=== PATIENT | female | born 1985 | race Caucasian/White ===

== ENCOUNTER → 2016-11-17 | Outpatient (CLI) | payer OTHER ==
[~2016-11-17] MED LIST: FLNIN/ NAE; MXL10 PO; ZLF/50 PO
[2016-11-17 16:38] LABS: HEMATOCRIT 40.4 % (37-47); MEAN CELL VOLUME 83.1 fL (80-100); MEAN CORPUSCULAR HGB CONC 33.7 g/dl (32-36); MEAN PLATELET VOLUME 11.4 fL (7.4-10.4); PLATELET COUNT 282 K/uL (130-400); RED BLOOD COUNT 4.86 M/uL (4.2-5.4); WHITE BLOOD COUNT 9.71 K/uL (4.8-10.8)
[2016-11-17 16:59] LABS: BASO % 0.3 %; BASO ABS # 0.03 K/uL (0-0.2); COMPLETE YES; EOS % 0.8 %; IG% 0.3 %; LYMPH % 40.4 %; LYMPH ABS # 3.92 K/uL (1.2-3.4); MONO % 6.7 %; NEUT % 51.5 %
[2016-11-17 17:19] LABS: ALKALINE PHOSPHATASE 98 U/L (45-117); ALT/SGPT 22 U/L (12-78); AST/SGOT 16 U/L (15-37); BLOOD UREA NITROGEN 20 mg/dl (7-18); BUN/CREATININE RATIO 21.8 (10-20); CALCIUM 9.1 mg/dl (8.5-10.1); CARBON DIOXIDE 19 mmol/L (21-32); CHLORIDE 111 mmol/L (98-107); CREATININE 0.94 mg/dl (0.60-1.20); GLUCOSE 84 mg/dl (70-99); POTASSIUM 3.3 mmol/L (3.5-5.1); SODIUM 141 mmol/L (136-145)
[2016-11-17 18:13] LABS: LYME DISEASE AB IGG NEG (NEG); LYME DISEASE AB IGM NEG (NEG)
== END | disposition home or self-care (01) ==
LOC: C.LAB1850 15:07
PROVIDERS: ATTEND Physician Assistant
DX: G43.909 Migraine, unspecified, not intractable, without status migrainosus (principal)

== ENCOUNTER 2016-12-17 11:09 | Emergency (ER) | payer OTHER ==
[~2016-12-17] VITALS: Ht 172.7 cm; Wt 106.0 kg
[~2016-12-17 11:09] MED LIST changes: -MXL10 PO; +RIZA10TA21 PO
[2016-12-17 11:12] VITALS: TEMP 36.6; Ht 172.7 cm; Wt 106.0 kg
[2016-12-17] MEDS ORDERED: SODIUM CHLORIDE 0.9% 500ML 500 ML IV STA (11:39)
[2016-12-17] MEDS ORDERED: MoRPHine SULFATE 4 MG/ML 1 ML CARP\\VIAL IV STA (11:39)
[2016-12-17] MEDS ORDERED: ONDANSETRON INJ 2 MG/ML 2 ML VIAL IV STA (11:39)
[2016-12-17] MEDS ORDERED: KETOROLAC TROMETHAMINE 30 MG/ML VIAL IV STA (11:39)
[2016-12-17 11:50] LABS: BASO % 0.3 %; BASO ABS # 0.03 K/uL (0-0.2); COMPLETE YES; EOS % 1.3 %; HEMATOCRIT 38.8 % (37-47); IG% 0.2 %; LYMPH % 20.7 %; LYMPH ABS # 2.03 K/uL (1.2-3.4); MEAN CELL VOLUME 84.5 fL (80-100); MEAN CORPUSCULAR HGB CONC 34.3 g/dl (32-36); MEAN PLATELET VOLUME 10.4 fL (7.4-10.4); MONO % 9.9 %; NEUT % 67.6 %; PLATELET COUNT 246 K/uL (130-400); RED BLOOD COUNT 4.59 M/uL (4.2-5.4); WHITE BLOOD COUNT 9.79 K/uL (4.8-10.8)
[2016-12-17] MEDS ORDERED: TOPI1CAP (11:52)
[2016-12-17] MEDS ORDERED: SERT1TAB68 PO (11:52)
--- NOTE | 2016-12-17 12:06 | EMERGENCY ROOM VISIT NOTE ---
History First contact with patient: 11:30 Chief Complaint: KIDNEY STONE Stated Complaint: KIDNEY STONE History of Present Illness The patient is a 31 year old female who presents to the Emergency Room via private vehicle accompanied by mother with complaints of "kidney stone". The patient states that she has a history of kidney stones many years ago, and yesterday evening she developed a sudden onset of right low back pain that feels as though it's very deep and like something is trying to get out of her. She states that she became angry, and notes that when she tries to urinate the amount of urge does not correlate with that that is expelled. She states that she Wraps was UTI therefore increase fluid intake but it is progressing and now worsening. The car ride here is the only alleviating factor, and the pain is worsening of which she rates as an 8/10. She denies chance of . She is not taking anything for the pain thus far. She denies any dysuria or vaginal discharge. Review of Systems A complete 10-point Review of Systems was discussed with the patient, with pertinent positives and negatives listed in the History of Present Illness. All remaining Review of Systems questions can be considered negative unless otherwise specified. Past Medical/Surgical History Medical Problems: (1) Major depression, chronic Family History Cancer Heart disease Hypertension Kidney stones Social History Smoking Status: Never Smoker Alcohol Use: none Drug Use: none Marital Status: single Occupation Status: unemployed, student Current/Historical Medications Scheduled Ondasetron Odt (Zofran Odt), 4 MG SL Q6H Sertraline Hcl (Zoloft), 100 MG PO DAILY Tamsulosin Hcl (Flomax), 0.4 MG PO DAILY Scheduled PRN Fluticasone Propionate (Fluticasone Propionate), 2 SPRAYS SONU DAILY PRN for Seasonal Allergies Oxycodone Ir (Roxicodone Ir), 1-2 TAB PO Q4H PRN for Pain Rizatriptan Benzoate (Rizatriptan Benzoate), 10 MG PO UD PRN for Migraine Miscellaneous Medications Topiramate (Trokendi Xr) Physical Exam Vital Signs Date Time Temp Pulse Resp B/P (MAP) Pulse Ox O2 Delivery O2 Flow Rate FiO2 12/17/16 13:15 52 16 104/71 98 12/17/16 12:07 52 14 133/93 96 Room Air 12/17/16 11:12 36.6 53 18 132/85 97 Room Air Physical Exam VITAL SIGNS - Vital signs and nursing notes were reviewed. Stable. Afebrile. GENERAL -31-year-old female appearing her stated age who is in no acute distress. Communicates well with provider and answers questions appropriately. SKIN - Without rashes. No petechial rashes. HEAD - NC/AT. EYES - Sclera anicteric. EARS - No deformities of external structures noted on gross examination bilaterally. NOSE - Midline and without cyanosis. No epistaxis or purulent drainage noted. MOUTH/OROPHARYNX - Without perioral cyanosis. LUNGS - Chest wall symmetric without accessory muscle use, intercostals retractions, or central cyanosis. Normal vesicular breath sounds CTA B/L. No wheezes, rales, or rhonchi appreciated. CARDIAC - RRR with S1/S2. No murmur, rubs, or gallops appreciated. ABDOMEN - Abdominal contour normal without pulsations or visible masses. BS normoactive all four quadrants. No tenderness, palpable masses, hepatosplenomegaly, or ascites noted. Right CVA tenderness. No reproducible paraspinous musculature tenderness. EXTREMITIES - No clubbing or peripheral cyanosis. No pretibial edema present. NEUROLOGIC - Cranial nerves II through XII grossly intact. PSYCH - A&O, and cooperates fully with examiner. Pt is very pleasant and interacts well with examiner. Medical Decision & Procedures ER Provider Diagnostic Interpretation: ABD/PELVIS WITHOUT FOR STONE CT DOSE: 1071.38 mGycm HISTORY: Flank pain R flank pain, urinary difficulty, hx stones TECHNIQUE: Multiaxial CT images of the abdomen and pelvis were performed without the use of intravenous and oral contrast according to the standard department stone protocol. A dose lowering technique was utilized adhering to the principles of ALARA. COMPARISON STUDY: 07/20/2007 FINDINGS: Lung bases are clear. 4 mm obstructing calculus right ureterovesical junction. Mild right hydroureteronephrosis. Increase in size as well as number of multiple bilateral renal calcifications. Liver spleen and pancreas appear unremarkable. Bowel pattern is considered nonobstructive. The appendix is normal. IMPRESSION: 1. 4 mm obstructing calculus right ureterovesical junction. 2. Mild right hydroureteronephrosis. 3. Increase in number and size of the calcifications the kidneys bilaterally The above report was generated using voice recognition software. It may contain grammatical, syntax or spelling errors. Electronically signed by: Darnell Perdomo M.D. 12/17/2016 12:41 PM Dictated Date/Time: 12/17/2016 12:38 PM Laboratory Results 12/17/16 11:35 Red Blood Count 4.59, Mean Corpuscular Volume 84.5, Mean Corpuscular Hemoglobin 29.0, Mean Corpuscular Hemoglobin Concent 34.3, Mean Platelet Volume 10.4, Neutrophils (%) (Auto) 67.6, Lymphocytes (%) (Auto) 20.7, Monocytes (%) (Auto) 9.9, Eosinophils (%) (Auto) 1.3, Basophils (%) (Auto) 0.3, Neutrophils # (Auto) 6.61, Lymphocytes # (Auto) 2.03, Monocytes # (Auto) 0.97, Eosinophils # (Auto) 0.13, Basophils # (Auto) 0.03 12/17/16 11:35 Test 12/17/16 11:35 12/17/16 12:15 White Blood Count 9.79 K/uL (4.8-10.8) Red Blood Count 4.59 M/uL (4.2-5.4) Hemoglobin 13.3 g/dL (12.0-16.0) Hematocrit 38.8 % (37-47) Mean Corpuscular Volume 84.5 fL (80-100) Mean Corpuscular Hemoglobin 29.0 pg (25-34) Mean Corpuscular Hemoglobin Concent 34.3 g/dl (32-36) Platelet Count 246 K/uL (130-400) Mean Platelet Volume 10.4 fL (7.4-10.4) Neutrophils (%) (Auto) 67.6 % Lymphocytes (%) (Auto) 20.7 % Monocytes (%) (Auto) 9.9 % Eosinophils (%) (Auto) 1.3 % Basophils (%) (Auto) 0.3 % Neutrophils # (Auto) 6.61 K/uL (1.4-6.5) Lymphocytes # (Auto) 2.03 K/uL (1.2-3.4) Monocytes # (Auto) 0.97 K/uL (0.11-0.59) Eosinophils # (Auto) 0.13 K/uL (0-0.5) Basophils # (Auto) 0.03 K/uL (0-0.2) RDW Standard Deviation 40.2 fL (36.4-46.3) RDW Coefficient of Variation 13.2 % (11.5-14.5) Immature Granulocyte % (Auto) 0.2 % Immature Granulocyte # (Auto) 0.02 K/uL (0.00-0.02) Anion Gap 8.0 mmol/L (3-11) Est Creatinine Clear Calc Drug Dose 108.1 ml/min Estimated GFR () 90.8 Estimated GFR (Non- 78.4 BUN/Creatinine Ratio 16.9 (10-20) Calcium Level 8.9 mg/dl (8.5-10.1) Total Bilirubin 0.3 mg/dl (0.2-1) Aspartate Amino Transf (AST/SGOT) 17 U/L (15-37) Alanine Aminotransferase (ALT/SGPT) 23 U/L (12-78) Alkaline Phosphatase 104 U/L (45-117) Total Protein 7.6 gm/dl (6.4-8.2) Albumin 3.6 gm/dl (3.4-5.0) Globulin 4.0 gm/dl (2.5-4.0) Albumin/Globulin Ratio 0.9 (0.9-2) Urine Color YELLOW Urine Appearance CLEAR (CLEAR) Urine pH 7.0 (4.5-7.5) Urine Specific [place] 1.010 (1.000-1.030) Urine Protein NEG (NEG) Urine Glucose (UA) NEG (NEG) Urine Ketones NEG (NEG) Urine Occult Blood 2+ (NEG) Urine Nitrite NEG (NEG) Urine Bilirubin NEG (NEG) Urine Urobilinogen NEG (NEG) Urine Leukocyte Esterase TRACE (NEG) Urine WBC (Auto) 1-5 /hpf (0-5) Urine RBC (Auto) 0-4 /hpf (0-4) Urine Hyaline Casts (Auto) 0 /lpf (0-5) Urine Epithelial Cells (Auto) 0-5 /lpf (0-5) Urine Bacteria (Auto) NEG (NEG) Urine Test NEG (NEG) Medications Administered Medications (Trade) Dose Ordered Sig/Marissa Route Start Time Stop Time Status Last Admin Dose Admin Ketorolac Tromethamine (Toradol Inj) 30 mg NOW STAT IV 12/17/16 11:39 12/17/16 11:42 DC 12/17/16 12:02 30 MG Morphine Sulfate (MoRPHine SULFATE INJ) 4 mg NOW STAT IV 12/17/16 11:39 12/17/16 11:42 DC 12/17/16 12:03 4 MG Ondansetron HCl (Zofran Inj) 4 mg NOW STAT IV 12/17/16 11:39 12/17/16 11:42 DC 12/17/16 12:02 4 MG Sodium Chloride 500 ml @ 500 mls/hr Q1H STAT IV 12/17/16 11:39 12/17/16 12:38 DC 12/17/16 12:01 500 MLS/HR Medical Decision Patient was seen and evaluated as above. She presents to us today with right flank pain. She has a history of kidney stones in the past. Previous CT here was in 2007. Benefits versus risk of obtaining repeat CT was discussed, and the decision was made to stand. She denied chance of . CT scan reveals a 4 mm obstructing stone at the right UVJ. Mild right hydronephrosis. This does certainly correlate with her symptoms. Urinalysis is not suggestive of infection. She was given morphine and Toradol for her pain with complete alleviation. Zofran for nausea. She was offered inpatient management and preferred to go home to try and pass the stone. I believe this is the best course of action. She will be sent home on oxycodone for pain, Zofran for nausea, and Flomax to help dilate the ureter. Straining all urine is recommended. She is to follow with urology of which number was provided. She was educated upon management as well as worrisome symptoms which to return. She had questions prior to discharge, and was discharged home in good condition. CBC reveals no concern of leukocytosis or anemia. Metabolic panel reveals hypokalemia slightly but no evidence of kidney or liver failure urine test negative with 2+ occult blood and trace leukocyte esterase. In the evaluation and treatment of this patient following differential diagnoses were entertained: Renal calculi, ovarian torsion, pyelonephritis, among others. In the treatment of this patient controlled medication was utilized and therefore the [facility], Prescription Drug Monitoring Program website was utilized to look up this patient. No concerns were identified that would prohibit or alter my treatment decision. Impression Primary Impression: Right flank pain Additional Impressions: Hypokalemia Ureteral calculus, right Departure Information Dispostion Home / Self-Care Condition GOOD Prescriptions Ondasetron Odt (ZOFRAN ODT) 4 Mg Tab 4 MG SL Q6H for Nausea, #15 TAB Prov: Santi Hernandez PA-C 12/17/16 Tamsulosin Hcl (FLOMAX) 0.4 Mg Cap 0.4 MG PO DAILY for 7 Days, #7 CAP Prov: Santi Hernandez PA-C 12/17/16 Oxycodone Ir (Roxicodone Ir) 5 Mg Tab 1-2 TAB PO Q4H Y for Pain, #20 TAB For Initial Treatment Prov: Santi Hernandez PA-C 12/17/16 Referrals Glo Ordoñez CRNP (PCP) Merrick Hudson MD Patient Instructions My [facility] Additional Instructions You have been treated in the Emergency Department today for a Kidney Stone ( Nephrolithiasis). You have received pain medicine in the emergency department which impairs your ability to operate a vehicle. It is illegal for you to drive after receiving these medicines. You have been prescribed Oxy IR to be used for pain control. This is a narcotic medication. You cannot drive or consume alcohol while on this medicine. This medicine should only be used for pain that cannot be controlled with over-the- counter pain medicines. You have been prescribed ZOFRAN to be used for any nausea or vomiting. Take as prescribed. You have been prescribed Flomax 0.4 mg to be taken ONCE daily. This medicine has been prescribed as it can help relax the smooth muscles of the urinary tract increasing transit time of the kidney stone. For pain control, you can use the following [id number]-[id number] medicines (if >12 yo): - Regular strength (325mg/tab) Tylenol (acetaminophen) 2 tabs every 4-6 hours as needed. Do not exceed 12 tablets in a 24 hour period. Avoid taking more than 3 grams (3000 mg) of Tylenol per day. This includes any other sources of acetaminophen you may take on a regular basis. - Regular strength (200 mg/tab) Advil (ibuprofen) 1-2 tabs every 4-6 hours as needed. Do not exceed a dose of 3200 mg per day. You have been provided a strainer and specimen collection cup. You should strain your urine to collect any passed stones. Your stones can be placed into the specimen cup and taken to your Urologist for further evaluation. You have been provided the contact information for the on-call Urologist. You should contact the Urologist's office tomorrow to establish a follow-up appointment from today's Emergency Department visit. Return to the Emergency Department if your symptoms persist despite the treatment plan outlined above or if you develop the following symptoms: intractable pain, fever, chills, or large amounts of blood in your urine. ABD/PELVIS WITHOUT FOR STONE CT DOSE: 1071.38 mGycm HISTORY: Flank pain R flank pain, urinary difficulty, hx stones TECHNIQUE: Multiaxial CT images of the abdomen and pelvis were performed without the use of intravenous and oral contrast according to the standard department stone protocol. A dose lowering technique was utilized adhering to the principles of ALARA. COMPARISON STUDY: 07/20/2007 FINDINGS: Lung bases are clear. 4 mm obstructing calculus right ureterovesical junction. Mild right hydroureteronephrosis. Increase in size as well as number of multiple bilateral renal calcifications. Liver spleen and pancreas appear unremarkable. Bowel pattern is considered nonobstructive. The appendix is normal. IMPRESSION: 1. 4 mm obstructing calculus right ureterovesical junction. 2. Mild right hydroureteronephrosis. 3. Increase in number and size of the calcifications the kidneys bilaterally The above report was generated using voice recognition software. It may contain grammatical, syntax or spelling errors. Problem Qualifiers
[2016-12-17 12:11] LABS: BUN/CREATININE RATIO 16.9 (10-20); CALCIUM 8.9 mg/dl (8.5-10.1); CREATININE 0.97 mg/dl (0.60-1.20); POTASSIUM 3.4 mmol/L (3.5-5.1)
[2016-12-17 12:13] LABS: ALB/GLOB RATIO 0.9 (0.9-2)
--- NOTE | 2016-12-17 12:42 | DIAGNOSTIC IMAGING REPORT ---
ABD/PELVIS WITHOUT FOR STONE CT DOSE: 1071.38 mGycm HISTORY: Flank pain R flank pain, urinary difficulty, hx stones TECHNIQUE: Multiaxial CT images of the abdomen and pelvis were performed without the use of intravenous and oral contrast according to the standard department stone protocol. A dose lowering technique was utilized adhering to the principles of ALARA. COMPARISON STUDY: 07/20/2007 FINDINGS: Lung bases are clear. 4 mm obstructing calculus right ureterovesical junction. Mild right hydroureteronephrosis. Increase in size as well as number of multiple bilateral renal calcifications. Liver spleen and pancreas appear unremarkable. Bowel pattern is considered nonobstructive. The appendix is normal. IMPRESSION: 1. 4 mm obstructing calculus right ureterovesical junction. 2. Mild right hydroureteronephrosis. 3. Increase in number and size of the calcifications the kidneys bilaterally The above report was generated using voice recognition software. It may contain grammatical, syntax or spelling errors. Electronically signed by: Darnell Perdomo M.D. 12/17/2016 12:41 PM Dictated Date/Time: 12/17/2016 12:38 PM
[2016-12-17 12:49] LABS: URINE APPEARANCE CLEAR (CLEAR); URINE BILIRUBIN NEG (NEG); URINE COLOR YELLOW; URINE EPITHELIAL CELL AUTO 0-5 /lpf (0-5); URINE NITRITE NEG (NEG); UROBILINOGEN NEG (NEG); ZZUR CULT IF INDIC CLEAN CATCH NO
[2016-12-17 12:51] LABS: MANUAL MICROSCOPIC REQUIRED? NO; REVIEW REQ? NO
[2016-12-17] MEDS ORDERED: OXYC1TAB3 PO (12:56)
[2016-12-17] MEDS ORDERED: TAMS0.4C38 PO (12:56)
[2016-12-17] MEDS ORDERED: ONDA4TAB10 SL (12:56)
[2016-12-17 13:15] VITALS: BP 104/71; PULSE 52; O2SAT 98
== END 2016-12-17 13:15 | disposition home or self-care (01) ==
LOC: C.EDB 11:11 → C.EDC 13:15
DX: R10.31 Right lower quadrant pain (principal); R10.11 Right upper quadrant pain; E87.6 Hypokalemia; N20.1 Calculus of ureter; F32.9 Major depressive disorder, single episode, unspecified; Z87.442 Personal history of urinary calculi; Z82.49 Family history of ischemic heart disease and other diseases of the circulatory system; Z84.1 Family history of disorders of kidney and ureter

== ENCOUNTER → 2017-05-17 | Outpatient (CLI) | payer OTHER ==
[~2017-05-17] MED LIST changes: +ONDA4TAB10 SL; +OXYC1TAB3 PO; +SERT1TAB68 PO; +TOPI1CAP25; -ZLF/50 PO
--- NOTE | 2017-05-17 12:46 | DIAGNOSTIC IMAGING REPORT ---
[facility] CLINICAL HISTORY: Right flank pain. COMPARISON STUDY: CT of the abdomen and pelvis December 17, 2016. FINDINGS: Note is made of a 4 mm right pelvic calcification which is suggestive of a calculus at the right ureterovesical junction. A calculus was shown at this site on exam of December 17, 2016. There may be an adjacent punctate 2 mm distal right ureteral calculus. This may reflect a new calculus. Additional pelvic calcifications reflect phleboliths. There are numerous bilateral renal calculi, including an 8 mm right renal calculus. No evidence for a bowel obstruction. IMPRESSION: 1. Suspected 4 mm right ureterovesical junction calculus. Possible adjacent punctate 2 mm distal right ureteral calculus. 2. Extensive bilateral nephrolithiasis. Electronically signed by: Karsten Dave M.D. 05/17/2017 12:45 PM Dictated Date/Time: 05/17/2017 12:35 PM
== END | disposition home or self-care (01) ==
LOC: C.RAD1850 12:25
PROVIDERS: ATTEND Physician Assistant
DX: R10.9 Unspecified abdominal pain (principal); N20.0 Calculus of kidney

== ENCOUNTER → 2017-05-17 | Outpatient (CLI) | payer OTHER | END | disposition home or self-care (01) | LOC: C.LABSPEC 13:22 | PROVIDERS: ATTEND Physician Assistant | DX: N39.0 Urinary tract infection, site not specified (principal) ==

== ENCOUNTER → 2017-05-24 | Outpatient (CLI) | payer OTHER ==
[~2017-05-24] MED LIST changes: +TRAM-10 PO
--- NOTE | 2017-05-24 17:12 | DIAGNOSTIC IMAGING REPORT ---
KUB CLINICAL HISTORY: Ureteral calculus. Nephrolithiasis. COMPARISON STUDY: 05/17/2017 FINDINGS: There are innumerable bilateral renal calculi. The largest single calculus is located on the right measuring 5 mm. The previously identified 4 mm distal right ureteral calculus is no longer visualized. There is no pathologic bowel dilatation. IMPRESSION: 1. Bilateral nephrolithiasis 2. The previously identified 4 mm distal right ureteral calculus is no longer visualized Electronically signed by: Hai García M.D. 05/24/2017 5:11 PM Dictated Date/Time: 05/24/2017 5:09 PM
== END | disposition home or self-care (01) ==
LOC: C.LAB1850 16:13
PROVIDERS: ATTEND Urology
DX: N20.0 Calculus of kidney (principal)

== ENCOUNTER → 2017-05-25 | Outpatient (CLI) | payer OTHER ==
[~2017-05-25] MED LIST changes: +TAMS0.4C38 PO
[2017-05-25 16:40] LABS: BASO % 0.4 %; BASO ABS # 0.03 K/uL (0-0.2); EOS % 1.6 %; EOS ABS # 0.13 K/uL (0-0.5); HEMATOCRIT 39.1 % (37-47); HEMOGLOBIN 13.1 g/dL (12.0-16.0); IG# 0.01 K/uL (0.00-0.02); LYMPH % 39.6 %; LYMPH ABS # 3.31 K/uL (1.2-3.4); MEAN CELL VOLUME 85.9 fL (80-100); MEAN CORPUSCULAR HEMOGLOBIN 28.8 pg (25-34); MEAN CORPUSCULAR HGB CONC 33.5 g/dl (32-36); MEAN PLATELET VOLUME 11.1 fL (7.4-10.4); MONO % 8.9 %; MONO ABS # 0.74 K/uL (0.11-0.59); NEUT % 49.4 %; NEUT ABS # 4.13 K/uL (1.4-6.5); PLATELET COUNT 281 K/uL (130-400); RED CELL DISTRIBUTION WIDTH CV 12.5 % (11.5-14.5); RED CELL DISTRIBUTION WIDTH SD 39.3 fL (36.4-46.3); WHITE BLOOD COUNT 8.35 K/uL (4.8-10.8)
[2017-05-25 17:04] LABS: BLOOD UREA NITROGEN 19 mg/dl (7-18); CARBON DIOXIDE 25 mmol/L (21-32); CREATININE 0.89 mg/dl (0.60-1.20); POTASSIUM 3.9 mmol/L (3.5-5.1); SODIUM 137 mmol/L (136-145)
== END | disposition home or self-care (01) ==
LOC: C.LAB 15:57
PROVIDERS: ATTEND Urology
DX: N20.0 Calculus of kidney (principal)

== ENCOUNTER → 2017-06-03 | Outpatient (CLI) | payer OTHER ==
[~2017-06-03] MED LIST changes: -ONDA4TAB10 SL; -OXYC1TAB3 PO; -SERT1TAB68 PO; -TOPI1CAP25
--- NOTE | 2017-06-03 10:23 | DIAGNOSTIC IMAGING REPORT ---
KUB CLINICAL HISTORY: Nephrolithiasis. COMPARISON STUDY: CT of the abdomen and pelvis December 17, 2016 and KUB May 24, 2016. FINDINGS: Pelvic calcifications are unchanged and reflect phleboliths. Numerous bilateral renal calculi are similar to previous exam. Index right renal calculus measures 6 mm in size. No ureteral calculi are identified on this exam. IMPRESSION: 1. No ureteral calculi identified. 2. No significant change in extensive bilateral nephrolithiasis. Electronically signed by: Karsten Dave M.D. 06/03/2017 10:22 AM Dictated Date/Time: 06/03/2017 10:20 AM
== END | disposition home or self-care (01) ==
LOC: C.LAB1850 10:06
PROVIDERS: ATTEND Urology
DX: N20.0 Calculus of kidney (principal)

== ENCOUNTER → 2017-06-03 | Day surgery (SDC) | payer OTHER ==
[2017-05-31 14:48] VITALS: Ht 172.7 cm; Wt 100.0 kg
[~2017-06-03] VITALS: Ht 172.7 cm; Wt 100.0 kg
[~2017-06-03] MED LIST changes: +ATROPINE SULFATE 0.1 MG/ML 5ML SYR IV PRN; +CHECK SCOPOLAMINE PATCH PLACEMENT SCH; +CIPROFLOXACIN 400MG / D5W IV SCH; +DEXAMETHASONE SOD INJ 4 MG/ML VIAL ONE; +EpHEDrine SULFATE INJ 50 MG/ML AMP IV PRN; +FENTANYL CITRATE INJ 50 MCG/1 ML 2 ML VIAL IV PRN; +FENTANYL CITRATE INJ 50 MCG/1 ML 2 ML VIAL ONE; +KETOROLAC TROMETHAMINE 30 MG/ML VIAL ONE; +LACTATED RINGER'S 1000ML 1,000 ML IV SCH; +LIDOCAINE HCL 2% 2 ML VIAL (20MG/ML) ONE; +MIDAZOLAM HCL 1 MG/ML 2ML VIAL ONE; +NURSING VERBAL MED ORDER ONE; +ONDANSETRON INJ 2 MG/ML 2 ML VIAL IV PRN; +ONDANSETRON INJ 2 MG/ML 2 ML VIAL ONE; +OXYCODONE/ACETAMINOPHEN 5-325 TAB PO PRN; +PROPOFOL IV EMULSION 10 MG/ML 20 ML VIAL IV ONE; +SCOPOLAMINE 1.5 MG TDSY TD ONE
--- NOTE | 2017-06-03 11:17 | History & Physical Bridge Note ---
H&P Re-Evaluation Bridge Note: I have examined the patient, reviewed the History & Physical and in the interval since the performance of the History & Physical I have noted the following changes of clinical significance: No changes noted
--- NOTE | 2017-06-03 11:39 | Discharge Instructions ---
Discharge Instructions Date of Service Jun 03, 2017. Admission Reason for Admission: Stones Discharge Discharge Diagnosis / Problem: Right Stones Discharge Goals Goal(s): Decrease discomfort, Improve function Activity Recommendations Activity Limitations: resume your previous activity Lifting Limitations: gradually increase as tolerated Exercise/Sports Limitations: gradually increase as tolerated . Instructions / Follow-Up Instructions / Follow-Up May have blood in urine. May have flank or pelvic discomfort. Call if any fevers or chills. Current Hospital Diet Patient's current hospital diet: Discharge Diet Recommended Diet: Regular Diet Procedures Procedures Performed: R ESWL Pending Studies Studies pending at discharge: no Medical Emergencies . Who to Call and When: Medical Emergencies: If at any time you feel your situation is an emergency, please call 911 immediately. . Non-Emergent Contact Non-Emergency issues call your: Primary Care Provider, Urologist Call Non-Emergent contact if: you have a fever, temperature is above 101, temperature is above 101.5, your pain is not controlled, your pain is worsening , your pain is unusual for you . . "Provider Documentation" section prepared by Jhony Bragg. .
--- NOTE | 2017-06-03 13:08 | [facility] Operative Report ---
Operative Report Operative Date Jun 03, 2017. Pre-Operative Diagnosis Right Renal Stones. Post-Operative Diagnosis Same Procedure(s) Performed Right ESWL Surgeon Bragg Estimated Blood Loss None Findings Right Stones. Largest is 6 mm with another approx 4 mm. Specimens None Drains None Anesthesia Type General Complication(s) none Disposition Surgical ICU Indications Multiple stones bilateral. Risks and benefits discussed at length. Description of Procedure Patient was consented and brought back to the operating room. Patient was placed under anesthesia in the supine position. Patient was prepped and draped in the regular sterile fashion. A time out was completed. With the time out completed, The patient was assessed with fluoroscopy. The stone was identified and position was triangulated. At this point, the shock waves commenced. The stone was monitored throughout the process with fluoroscopy to assess progression and maintain position. The stone was pulverized in total with 2500 shocks at a maximum voltage of 5 with a total fluoroscopic time of 2:56. The 6 mm UPJ stone on right required the full amount of shocks to fully treat. With the stone treated, the procedure ended. The patient was cleaned, aroused from anesthesia, and transferred to the pacu in stable condition having tolerated the procedure well with no complications. I was present and participated in all aspects of the procedure. The patient will be monitored in the PACU until transferred. I attest to the content of the Intraoperative Record and any orders documented therein. Any exceptions are noted below.
[2017-06-03 13:44] VITALS: TEMP 36.8
[2017-06-03 14:01] VITALS: BP 137/84; PULSE 53; O2SAT 97
--- NOTE | 2017-06-03 14:04 | Anesthesia Progress Nt - [facility] ---
Anesthesia Post Op Note Date & Time Jun 03, 2017 at 14:04 Vital Signs Pain Intensity: 2 Vital Signs Past 12 Hours Date Time Temp Pulse Resp B/P (MAP) Pulse Ox O2 Delivery O2 Flow Rate FiO2 06/03/17 14:01 53 16 137/84 (101) 97 06/03/17 13:44 36.8 59 18 124/81 (95) 98 Room Air 06/03/17 13:36 56 21 06/03/17 13:36 56 21 123/85 99 06/03/17 13:35 37.1 56 20 123/85 99 Room Air 06/03/17 13:31 69 20 06/03/17 13:31 66 20 120/85 98 06/03/17 13:26 66 21 06/03/17 13:26 66 21 123/82 98 06/03/17 13:21 59 21 120/85 99 06/03/17 13:21 59 21 06/03/17 13:16 64 17 124/82 99 06/03/17 13:16 63 17 06/03/17 13:12 120/88 06/03/17 13:11 36.4 82 20 120/88 98 Mask 6 06/03/17 13:11 79 98 06/03/17 13:11 79 06/03/17 10:46 36.8 59 18 136/82 (100) 97 Room Air Notes Mental Status: alert / awake / arousable, participated in evaluation Pt Amnestic to Procedure: Yes Nausea / Vomiting: adequately controlled Pain: adequately controlled Airway Patency, RR, SpO2: stable & adequate BP & HR: stable & adequate Hydration State: stable & adequate Anesthetic Complications: no major complications apparent
== END | disposition home or self-care (01) ==
LOC: X.SURG 10:19
PROVIDERS: ATTEND Urology
DX: N20.0 Calculus of kidney (principal); Z79.899 Other long term (current) drug therapy; E66.9 Obesity, unspecified; Z68.33 Body mass index [BMI] 33.0-33.9, adult